=== PATIENT | male | born 1980 | race Two or more races ===

== ENCOUNTER 2017-08-21 17:04 | Inpatient (IN) | payer OTHER ==
[~2017-08-21] VITALS: Ht 154.9 cm; Wt 102.0 kg
[2017-08-21] MEDS ORDERED: SODIUM CHLORIDE 0.9% 1,000 ML IV ONE (17:51)
[2017-08-21] MEDS ORDERED: MORPHINE SULFATE 10 MG/ML INJ 1ML SDV IV ONE (18:00)
[2017-08-21] MEDS ORDERED: ONDANSETRON HCL 4 MG/2 ML VIAL IV ONE (18:00)
[2017-08-21 19:11] LABS: Basophils # (auto) 0 uL; Basophils % (auto) 0.2 % (0.0-2.0); Eosinophils # (auto) 0 uL; Eosinophils % (auto) 0.1 % (0.0-7.0); Hematocrit 45.8 % (41.0-53.0); Hemoglobin 15.4 g/dL (13.5-17.5); Lymphocytes # (auto) 1.7 uL; Lymphocytes % (auto) 12.3 % (10.0-50.0); Mean Corpuscular Hemoglobin 32.2 pg (28.0-32.0); Mean Corpuscular Hgb Conc. 33.7 g/dL (32.0-36.0); Mean Corpuscular Volume 95.6 fL (80.0-100.0); Monocytes # (auto) 1.1 uL; Monocytes % (auto) 7.7 % (0.0-12.0); Neutrophils # (auto) 11.3 uL; Neutrophils % (auto) 79.7 % (37.0-80.0); Nucleated Red Blood Cells % 0.1 %; Platelet Count (auto) 220 10^3/uL (140-450); Red Blood Cells 4.79 10^6/uL (4.5-5.90); Red Cell Distribution Width 12.9 % (11.8-14.3); White Blood Cell 14.1 10^3/uL (4.4-10.8)
[2017-08-21 19:41] LABS: Albumin 4.2 g/dL (3.4-5.0); BUN/Creatinine Ratio 11.1; Bilirubin, Total 0.9 mg/dL (0.2-1.0); Calcium 8.9 mg/dL (8.5-10.1); Potassium 5.2 mmol/L (3.5-5.1); Total Protein 7.6 g/dL (6.4-8.2)
[2017-08-21] MEDS ORDERED: ALBUTEROL SULF 2.5 MG/0.5ML(0.5%) NEB SOLN NEB STA (20:24)
[2017-08-21] MEDS ORDERED: CALCIUM GLUC 4.65meq/50ml D5AE 50 ML IV ONE (20:30)
[2017-08-21] MEDS ORDERED: SODIUM POLYSTYRENE SULF 15GM/60ML SUSP PR ONE (20:30)
[2017-08-21] MEDS ORDERED: SODIUM BICARBONATE 8.4% INJ 50ML SYRINGE IV ONE (20:30)
[2017-08-21 20:31] LABS: Urine Bacteria NONE SEEN /hpf (None Seen); Urine Blood 1+ /uL (Negative); Urine Mucus FEW (None Seen); Urine Specific Gravity 1.015 (1.001-1.035); Urine WBC 2 /hpf (0 - 3)
[2017-08-21] MEDS ORDERED: ALBUTEROL SULF 2.5 MG/0.5ML(0.5%) NEB SOLN NEB PRN (21:45)
[2017-08-21] MEDS ORDERED: ACETAMINOPHEN 325 MG TAB PO PRN (21:45)
[2017-08-21 22:08] VITALS: BP 132/74
[2017-08-21 23:11] VITALS: BP 140/86
[2017-08-21] MEDS: HYDROcodone-ACET 10/325MG TAB PO PRN (23:27)
[2017-08-21 23:56] VITALS: BP 132/74
[2017-08-22 05:51] VITALS: BP 111/67
[2017-08-22] MEDS: HYDROcodone-ACET 10/325MG TAB PO PRN ×3 (06:35→20:26)
[2017-08-22 08:30] VITALS: BP 120/70
[2017-08-22] MEDS ORDERED: INFLUENZA QUAD 2017-2018 0.5 ML SYRG IM ONE (10:00)
[2017-08-22 13:10] VITALS: BP 122/65
[2017-08-22] MEDS: CYCLOBENZAPRINE HCL 10 MG TAB PO SCH ×2 (13:38→22:16)
[2017-08-22 13:55] LABS: INR 1.12 (0.9-1.15); Partial Thromboplastin Time 25.9 sec (22.64-33.71); Prothrombin Time 12.2 sec (9.37-12.3)
[2017-08-22 16:48] VITALS: BP 119/66
[2017-08-22 22:00] VITALS: BP 125/73
[2017-08-23 05:00] VITALS: BP 109/55
[2017-08-23] MEDS: CYCLOBENZAPRINE HCL 10 MG TAB PO SCH ×3 (05:56→21:59)
[2017-08-23 09:00] VITALS: BP 119/63
[2017-08-23] MEDS: HYDROcodone-ACET 10/325MG TAB PO PRN ×2 (10:03→19:43)
[2017-08-23 13:00] VITALS: BP 115/67
[2017-08-23 17:35] VITALS: BP 121/76
[2017-08-23 21:58] VITALS: BP 111/75
[2017-08-24 05:30] VITALS: BP 101/53
[2017-08-24] MEDS: CYCLOBENZAPRINE HCL 10 MG TAB PO SCH ×2 (05:33→14:23)
[2017-08-24 09:07] VITALS: BP 111/68
[2017-08-24] MEDS: HYDROcodone-ACET 10/325MG TAB PO PRN (09:13)
[2017-08-24 12:01] VITALS: BP 113/64
[2017-08-24 17:00] VITALS: BP 116/71
== END 2017-08-24 19:00 | DRG 155 ==
LOC: ER 17:04 → EEVIPCON 17:05 → OVERFLOW 17:05 → EAST 22:06
PROVIDERS: ADMIT Internal Medicine; ATTEND Internal Medicine
DX: S02.2XXA Fracture of nasal bones, initial encounter for closed fracture (principal); S02.401A Maxillary fracture, unspecified side, initial encounter for closed fracture; E87.5 Hyperkalemia; J45.909 Unspecified asthma, uncomplicated; B19.20 Unspecified viral hepatitis C without hepatic coma; F12.90 Cannabis use, unspecified, uncomplicated; F17.210 Nicotine dependence, cigarettes, uncomplicated; K21.9 Gastro-esophageal reflux disease without esophagitis; F32.9 Major depressive disorder, single episode, unspecified; F41.9 Anxiety disorder, unspecified; Y04.0XXA Assault by unarmed brawl or fight, initial encounter; Z80.3 Family history of malignant neoplasm of breast; Z82.49 Family history of ischemic heart disease and other diseases of the circulatory system; Y93.89 Activity, other specified; Y92.89 Other specified places as the place of occurrence of the external cause; Y99.8 Other external cause status; Z89.022 Acquired absence of left finger(s); Z89.021 Acquired absence of right finger(s); Z23 Encounter for immunization
CPT/HCPCS: 36415; 70450; 70486; 71045; 73130; 73562; 80053; 81001; 85025; 85610; 85730; 94640; 96361; 96365; 96375; J0610; J2405